=== PATIENT | female | born 1960 | race Caucasian/White ===

== ENCOUNTER 2017-12-11 11:04 | Emergency (ER) | payer SELFPAY ==
--- NOTE | 2017-12-11 11:59 | Emergency Department Record ---
History of Present Illness - General Stated complaint: LACERATED R HAND L KNEE Time Seen by Provider: 12/11/17 11:50 Source: Patient Mode of Arrival: Ambulatory Limitations: No limitations - History of Present Illness Initial comments: 57 yo female presents with a right hand laceration. 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 She tripped. She had dropped glass plates that had shattered. She landed on the glass on the floor with her right hand. No numbness or tingling. No weakness or loss of ROM of the fingers or hand. She has mild pain to the left knee as well. MD Complaint: Extremity pain, Other (Right hand laceration) -: Hour(s) (1) Location: Right History of Same: No -: No Arthralgia, Yes Myalgia Radiation: Distal Quality: Aching Consistency: Constant Improves with: Nothing Worsens with: Nothing Associated Symptoms: Denies other symptoms - Related Data Previous Rx's Medication Instructions Recorded Cephalexin [Keflex] 500 mg PO TID #21 cap 12/11/17 Allergies Allergy/AdvReac Type Severity Reaction Status Date / Time egg Allergy ANAPHYLAXIS Verified 12/11/17 11:57 Review of Systems Constitutional: Denies: Chills, Fever, Malaise, Weakness Eyes: Denies: Eye discharge, Eye pain, Photophobia, Vision change ENT: Denies: Congestion, Throat pain Respiratory: Denies: Cough Cardiovascular: Denies: Chest pain, Palpitations, Syncope Endocrine: Denies: Fatigue Gastrointestinal: Denies: Abdominal pain, Diarrhea, Nausea, Vomiting Genitourinary: Denies: Dyspareunia, Dysuria, Urgency Musculoskeletal: Reports: As per HPI, Myalgia. Denies: Arthralgia, Back pain, Neck pain Skin: Reports: Other (Laceration). Denies: Bruising, Change in color, Lesions, Pruritus, Rash Neurological: Denies: Abnormal gait, Headache, Numbness, Tingling, Tremors, Weakness Psychiatric: Denies: Anxiety Hematological/Lymphatic: Denies: Blood Clots, Easy bleeding, Easy bruising, Swollen glands Past Medical History - SOCIAL HISTORY Smoking Status: Light tobacco smoker (<10/day) - RESPIRATORY Hx Respiratory Disorders: No - CARDIOVASCULAR Hx Cardio Disorders: No - NEURO Hx Neuro Disorders: No - GI Hx GI Disorders: No - Hx Genitourinary Disorders: No - ENDOCRINE Hx Endocrine Disorders: No - MUSCULOSKELETAL Hx Musculoskeletal Disorders: Yes Hx Arthritis: Yes - PSYCH Hx Psych Problems: No - HEMATOLOGY/ONCOLOGY Hx Hematology/Oncology Disorders: No Physical Exam - General General Appearance: Alert, Oriented x3, Cooperative, No acute distress Limitations: No limitations - Head Head exam: Normal inspection - Eye Eye exam: Normal appearance, PERRL. negative: Conjunctival injection, Scleral icterus - ENT ENT exam: Normal exam Ear exam: Normal external inspection Nasal Exam: Normal inspection Mouth exam: Normal external inspection - Neck Neck exam: Normal inspection, Full ROM. negative: Tenderness - Respiratory Respiratory exam: Normal lung sounds bilaterally. negative: Respiratory distress - Cardiovascular Cardiovascular Exam: Regular rate, Normal rhythm, Normal heart sounds Peripheral Pulses: 2+: Radial (R) - Rectal Rectal exam: Deferred - exam: Deferred - Extremities Extremities exam: Full ROM, Normal capillary refill, Tenderness, Other (4cm palm laceration, linear.). negative: Normal inspection, Calf tenderness, Pedal edema Image of Hand: 1 - 4cm linear palm laceration - Back Back exam: Reports: Normal inspection - Neurological Neurological exam: Alert, Motor sensory deficit, Normal gait, Oriented X3 - Psychiatric Psychiatric exam: Normal affect, Normal mood - Skin Skin exam: negative: Cyanosis, Diaphoretic Type of lesion: Laceration Course - Reevaluation(s) Reevaluation #1: The patient was sent for an XR of the right hand 12/11/17 12:03 12/11/17 12:18 Betadine Prep Lidocaine with Sensorcaine 50/50 4ml local 500ml NS irrigation Awaiting XR read 12/11/17 13:18 I discussed the case with the radiologist. She states no visible fracture or FB seen on XR The wound was examined to the base in a bloodless field. No FB seen or felt on examination No visible tendon injury visible on examination She has full ROM active and passive of all fingers. No numbness or tingling on examination The area was prepped again with betadine The wound was again copiously irrigated the wound was close with 9 simple interrupted sutures of 3-0 prolene We discussed home care, signs of infection and a recheck in the ED or PCP this week 12/11/17 15:54 The BP remains elevated. I discussed additional tests and mediations. She refuses at this time. She wishes to leave by signing out AMA. I explained the risks of leaving with this elevated BP as well as the AMA process. I SW her PCP. She will be seen tomorrow for a BP check in the office and seen in one week for a wound check of the hand laceration. 12/11/17 16:29 Disposition Disposition: Discharge Clinical Impression: Hand laceration, Left against medical advice, Hypertension Disposition: Against Medical Advice Condition: (1) Good Instructions: Laceration (ED), Hypertension (ED), Against Medical Advice (ED) Additional Instructions: suture removal in 2 weeks return immediately if you have pain, swelling, pus, redness or any signs of infection take the Keflex as instructed until gone Call to be seen tomorrow by your doctor You are signing out AMA but you can return anytime for further evaluation and treatment of your blood pressure Prescriptions: Cephalexin [Keflex] 500 mg PO TID #21 cap Forms: Patient Portal Access Time of Disposition: 13:22 Quality - Quality Measures Quality Measures: N/A - Blood Pressure Screening Does Patient Have Any of the Following: Active Dx of HTN Blood Pressure Classification: Hypertensive Reading Systolic Measurement: 217 Diastolic Measurement: 127 Screening for High Blood Pressure: Patient Exclusion, Hx of HTN [G9744]
[2017-12-11] MEDS ORDERED: CLONIDINE HCL 0.1 MG TABLET PO ONE (13:41)
--- NOTE | 2017-12-12 08:35 | RADIOLOGY REPORT ---
EXAM: RIGHT HAND HISTORY: PAIN. TECHNIQUE: Three views of the right hand were performed. FINDINGS: There is degenerative change of the first carpal metacarpal joint space. There is a soft tissue laceration. No definite fracture or dislocation. IMPRESSION: 1. SOFT TISSUE LACERATION. NO DEFINITIVE FRACTURE OR DISLOCATION. 2. DEGENERATIVE CHANGE OF THE FIRST CARPAL METACARPAL JOINT SPACE. JOB NUMBER: [id number] MTDD
== END 2017-12-11 16:03 | disposition left against medical advice (07) ==
LOC: ER 11:04
DX: S61.411A Laceration without foreign body of right hand, initial encounter (principal); W01.110A Fall on same level from slipping, tripping and stumbling with subsequent striking against sharp glass, initial encounter; I10 Essential (primary) hypertension; F17.210 Nicotine dependence, cigarettes, uncomplicated; Y93.G9 Activity, other involving cooking and grilling; Y92.511 Restaurant or cafe as the place of occurrence of the external cause; Y99.0 Civilian activity done for income or pay
CPT/HCPCS: 12042; 99283; 99284

== ENCOUNTER 2018-05-11 14:49 | Emergency (ER) | payer SELFPAY ==
[2018-05-11] MEDS ORDERED: LABETALOL HCL 5MG/ML, 20ML VIAL IV ONE (16:59)
--- NOTE | 2018-05-11 17:04 | Emergency Department Record ---
History of Present Illness - General Chief Complaint: Hypertension Stated Complaint: HBPW/SPOTS IN EYES Time Seen by Provider: 05/11/18 16:59 Source: Patient Mode of Arrival: Ambulatory - History of Present Illness Initial Comments: The patient went on vacation and totally forgot all about her BP medication. Now she has a mild headache and fatigue. She states there is a floating blurred spot in her left eye which is painless. She denies having chest pain, difficulty breathing, abdominal pain, nausea, vomiting, back pain. She denies hematuria. this morning she took her first Lisinopril pill since she went on vacation. Onset/Timin -: Hour(s) Timing: Sudden onset History of Same: Yes History of Trauma: No Improves With: Nothing Worsens With: Nothing - Latricia Coma Scale Eye Response: (4) Open spontaneously Motor Response: (6) Obeys commands Verbal Response: (5) Oriented Latricia Total: 15 - Related Data Allergies Allergy/AdvReac Type Severity Reaction Status Date / Time egg Allergy ANAPHYLAXIS Verified 05/11/18 16:33 Travel Screening - Travel/Exposure Within Last 30 Days Have you traveled within the last 30 days?: No - Travel/Exposure Within Last Year Have you traveled outside the [place] in the last year?: No - Additonal Travel Details Have you been exposed to anyone with a communicable illness?: No - Travel Symptoms Symptom Screening: None Review of Systems Reviewed: No additional complaints except as noted below Constitutional: Reports: As per HPI. Denies: Chills, Fever, Malaise, Night sweats, Weakness, Weight change Eyes: Reports: As per HPI. Denies: Eye discharge, Eye pain, Photophobia, Vision change ENT: Reports: As per HPI. Denies: Congestion, Dental pain, Ear pain, Epistaxis , Hearing loss, Throat pain Respiratory: Reports: As per HPI. Denies: Cough, Dyspnea, Hemoptysis, Stridor, Wheezes Cardiovascular: Reports: As per HPI. Denies: Arrhythmia, Chest pain, Dyspnea on exertion, Edema, Murmurs, Orthopnea, Palpitations, Paroxysmal nocturnal dyspnea, Rheumatic Fever, Syncope Endocrine: Reports: As per HPI. Denies: Fatigue, Heat or cold intolerance, Polydipsia, Polyuria Gastrointestinal: Reports: As per HPI. Denies: Abdominal pain, Constipation, Diarrhea, Hematemesis, Hematochezia, Melena, Nausea, Vomiting Genitourinary: Reports: As per HPI. Denies: Abnormal menses, Discharge, Dyspareunia, Dysuria, Frequency, Hematuria, Incontinence, Retention, Urgency Musculoskeletal: Reports: As per HPI. Denies: Arthralgia, Back pain, Gout, Joint swelling, Myalgia, Neck pain Skin: Reports: As per HPI. Denies: Bruising, Change in color, Change in hair/ nails, Lesions, Pruritus, Rash Neurological: Reports: As per HPI. Denies: Abnormal gait, Confusion, Headache, Numbness, Paresthesias, Seizure, Tingling, Tremors, Vertigo, Weakness Psychiatric: Reports: As per HPI. Denies: Anxiety, Auditory hallucinations, Depression, Homicidal thoughts, Suicidal thoughts, Visual hallucinations Hematological/Lymphatic: Reports: As per HPI. Denies: Anemia, Blood Clots, Easy bleeding, Easy bruising, Swollen glands Past Medical History - SOCIAL HISTORY Smoking Status: Current every day smoker Alcohol Use: Rare Drug Use: None - RESPIRATORY Hx Respiratory Disorders: No - CARDIOVASCULAR Hx Cardio Disorders: No Hx Hypertension: Yes - NEURO Hx Neuro Disorders: No - GI Hx GI Disorders: Yes Hx Reflux: Yes - Hx Genitourinary Disorders: No - ENDOCRINE Hx Endocrine Disorders: No - MUSCULOSKELETAL Hx Musculoskeletal Disorders: Yes Hx Arthritis: Yes - PSYCH Hx Psych Problems: No - HEMATOLOGY/ONCOLOGY Hx Hematology/Oncology Disorders: No Family Medical History Any Significant Family History?: No Physical Exam - General General Appearance: Alert, Oriented x3, Cooperative, No acute distress - Head Head exam: Normal inspection - Eye Eye exam: Normal appearance, PERRL, Other (fundoscopy exam shows no abnormality. Visual acuity noted in nurses notes wnl as patient does nothave her glasses.). negative: Conjunctival injection, EOMI, Nystagmus Pupils: Normal accommodation With correction: No - ENT ENT exam: Normal exam, Mucous membranes moist, Normal external ear exam, Normal orophraynx, TM's normal bilaterally Ear exam: Normal external inspection. negative: External canal tenderness Nasal Exam: Normal inspection. negative: Discharge, Sinus tenderness Mouth exam: Normal external inspection, Tongue normal Teeth exam: Normal inspection. negative: Dental caries Throat exam: Normal inspection. negative: Tonsillar erythema, Tonsillar exudate - Neck Neck exam: Normal inspection, Full ROM. negative: Lymphadenopathy, Meningismus , Tenderness - Respiratory Respiratory exam: Normal lung sounds bilaterally. negative: Respiratory distress - Cardiovascular Cardiovascular Exam: Regular rate, Normal rhythm, Normal heart sounds - GI/Abdominal GI/Abdominal exam: Soft, Normal bowel sounds. negative: Tenderness - Rectal Rectal exam: Deferred - exam: Deferred - Extremities Extremities exam: Normal inspection, Full ROM, Normal capillary refill. negative: Tenderness - Back Back exam: Reports: Normal inspection, Full ROM. Denies: CVA tenderness (R), CVA tenderness (L), Muscle spasm, Rash noted, Tenderness - Neurological Neurological exam: Alert, CN II-XII intact, Normal gait, Oriented X3, Reflexes normal. negative: Motor sensory deficit - Psychiatric Psychiatric exam: Normal affect, Normal mood - Skin Skin exam: Dry, Intact, Normal color, Warm Course Vital Signs 05/11/18 05/11/18 16:23 16:50 Temperature 98.5 F Pulse Rate 67 Respiratory 18 Rate Blood Pressure 199/148 Blood Pressure 195/118 [Left Arm] Pulse Ox 97 - Reevaluation(s) Reevaluation #1: Blood pressure now is 146/104. Patietnstates a typical pressure for her has been 170's over 100. She is feeling better but still has a tiny headache over her left forehead which she thinks could be her sinuses. Patient states she has a follow up for her BP on 06-01-18. She was instructed to call Monday to see if she can get checked sooner and have her medication adjusted. 05/11/18 17:52 05/11/18 17:53 Medical Decision Making - Management Options MDM Management: No Additional Work-up Planned Disposition Disposition: Discharge Clinical Impression: Hypertension Qualifiers: Hypertension type: essential hypertension Qualified Code(s): I10 - Essential ( primary) hypertension Disposition: Home, Self-Care Condition: (1) Good Instructions: Hypertension (ED) Additional Instructions: Resume you BP medication without fail as directed. Call Monday for appointment same week for adjustment of blood pressure medication. Continue to monitor and record your BP three or more times daily for your PCP to evaluate. Forms: Patient Portal Access Quality - Quality Measures Quality Measures: N/A - Blood Pressure Screening Does Patient Have Any of the Following: No Blood Pressure Classification: Hypertensive Reading Systolic Measurement: 199 Diastolic Measurement: 148 Screening for High Blood Pressure: Patient Exclusion, Hx of HTN [G9744]
[2018-05-11] MEDS ORDERED: IBUPROFEN 200 MG TABLET PO ONE (17:53)
== END 2018-05-11 18:40 | disposition home or self-care (01) ==
LOC: ER 14:49
DX: I10 Essential (primary) hypertension (principal); F17.210 Nicotine dependence, cigarettes, uncomplicated
CPT/HCPCS: 96374; 99283